=== PATIENT | male | born 1945 | race Caucasian/White ===

== ENCOUNTER → 2023-09-15 10:30 | Outpatient (REF) | payer MEDICARE, OTHER, SELFPAY | LOC: RAD 10:30 | PROVIDERS: ATTENDING PHYSICIAN Orthopaedic Surgery Hand Surgery; FAMILY PHYSICIAN Family Medicine | DX: M25.512 Pain in left shoulder (principal) | CPT/HCPCS: 73200; 76881 ==

== ENCOUNTER 2023-10-27 06:05 | Day surgery (SDC) | payer MEDICARE, OTHER, SELFPAY ==
--- NOTE | 2023-09-24 10:12 | CM ---
Patient is scheduled for an elective L Reverse TSA on 10/27/23- he is a same day patient. Spoke with patient's prior to surgery. Introduced role of Orthopedic Navigator. She reports that she, patient and 's cousin live in a one story home.
There are 7 (6-1) steps to enter. Currently he functions independently. He does not use any DME. He has had VN services. PCP is Garth Newton.
Discussed orthopedic program and post surgical plans. Patient will return home when directed by surgeon. Reviewed MD follow up and transition to outpatient therapy. She is in agreement with tentative plan and states that she will be home with
patient and can assist if needed.
Patient will complete online education.
Plan: Orthopedic Navigator will be involved in the care of patient after surgery and will reassess discharge needs at that time.
[2023-09-30 09:56] LABS: Hematocrit 41.2 % (39.0-52.0); Hemoglobin 14.8 g/dL (13.0-18.0); Mean Corp Hgb Conc. 35.9 g/dL (33.0-37.0); Mean Corpuscular Volume 91.8 fL (80.0-94.0); Mean Platelet Volume 9.2 fL (7.4-10.4); Platelet Count 235 10^3/uL (130-400); Red Blood Cell Count 4.49 10^6/uL (4.70-6.10); Red Cell Dist. Width 12.9 % (11.5-14.5); White Blood Cell Count 8.5 10^3/uL (4.8-10.8)
[2023-09-30 10:25] LABS: ALT (SGPT) 24 U/L (0-50); AST (SGOT) 33 U/L (17-59); Albumin 3.9 g/dl (3.5-5.0); Alkaline Phosphatase 104 U/L (38-126); Blood Urea Nitrogen 11 mg/dl (9-20); Calcium 9.2 mg/dl (8.4-10.2); Carbon Dioxide 24 mmol/L (22-30); Chloride 100 mmol/L (98-107); Estimated Creatinine Clearance 68 ml/min; Glucose 109 mg/dl (70-99); Sodium 134 mmol/L (135-145); Total Bilirubin 0.6 mg/dl (0.2-1.3); Total Protein 6.2 g/dl (6.3-8.2); eGFR > 60.00
[2023-09-30 10:30] LABS: Potassium 4.3 mmol/L (3.5-5.1)
[2023-09-30 11:17] LABS: Glycohemoglobin (HgbA1c) 5.6 % (4.0-5.6)
[2023-10-27] VITALS (11 sets, daily range): BP systolic 92–115; BP diastolic 57–87
[2023-10-27] MEDS: NORMOSOL-R 1000 IV (06:35)
[2023-10-27] MEDS: TYLENOL 1000 MG PO (06:52)
[2023-10-27] MEDS: CELEBREX 200 MG PO (06:52)
[2023-10-27] MEDS: DILAUDID 0.25 MG IV ×2 (10:01→10:14)
[2023-10-27] MEDS: ANCEF 5 IV (12:05)
== END 2023-10-27 12:34 | disposition home or self-care (01) ==
LOC: SDS 06:05
PROVIDERS: ATTENDING PHYSICIAN Orthopaedic Surgery Hand Surgery; FAMILY PHYSICIAN Family Medicine; OTHER PHYSICIAN Internal Medicine Clinical Cardiac Electrophysiology
DX: M19.012 Primary osteoarthritis, left shoulder (principal); Z96.612 Presence of left artificial shoulder joint
CPT/HCPCS: 23472; C1713; C1776; 36415; 73020; 80053; 83036; 85027; 87070